=== PATIENT | male | born 1990 | race Caucasian/White ===

== ENCOUNTER 2019-02-28 09:29 | Inpatient (IN) | payer OTHER ==
[~2019-02-28] VITALS: Ht 185.4 cm; Wt 88.5 kg
[2019-02-28 09:36] VITALS: BP 138/95
[2019-02-28 10:59] LABS: ABSOLUTE BASOPHILS 0.1 thou/uL (0.0-0.2); ABSOLUTE LYMPHOCYTES 1.4 thou/uL (0.8-5.3); ABSOLUTE MONOCYTES 0.9 thou/uL (0.0-1.2); ABSOLUTE NEUTROPHILS 10.2 thou/uL (1.6-8.1); BASOPHILS 0.4 %; EOSINOPHILS 0.2 %; HEMATOCRIT 41.1 % (42.0-52.0); HEMOGLOBIN 14.4 gm/dL (14.0-18.0); LYMPHOCYTES 11.4 %; MCH 29.9 pg (26.0-34.0); MCHC 35.1 g/dL (28.0-37.0); MCV 85.3 fL (80.0-100.0); MONOCYTES 7.2 %; MPV 7.9 fl. (7.2-11.1); NUCLEATED RBCS 0 /100WBC; PLATELET COUNT* 259 thou/uL (150-400); POLYS 80.8 %; RBC 4.82 mil/uL (4.50-6.00); RDW-CV 12.9 % (10.5-14.5); WBC 12.6 thou/uL (4.0-11.0)
[2019-02-28 11:10] LABS: CALCIUM 10.2 mg/dL (8.5-10.1); CREATININE 1.1 mg/dL (0.6-1.3); POTASSIUM 4.1 mmol/L (3.5-5.1)
[2019-02-28 11:14] LABS: ALBUMIN 4.2 g/dL (3.4-5.0); TOTAL BILIRUBIN 1.1 mg/dL (<0.1-1.0)
[2019-02-28 12:02] LABS: ESR (SEDRATE) 40 mm/hr (0-15)
--- NOTE | 2019-02-28 17:00 | NUR ---
REPORT REC'D FROM LAKESHA RN, ER NURSE. PATIENT REC'D TO RM 318 PER CART FROM ER W/ ER CRABBER PRESENT. PATIENT ALERT AND ORIENTED, DR HERNANDEZ IN TO SEE PATIENT. MOTHER IN TO SEE PATIENT. IV SITE NOTED WNL. PATIENT STATES RT KNEE PAIN 07/16, STATES "GIVE ME A REMOTE FOR THE TV AND I WILL BE FINE". EDUCATED ON POC AND RM, CALL LIGHT. PATIENT STATES VERBALLY OF UNDERSTANDING. RESTING IN BED AT THIS TIME. CALL LIGHT IN REACH. ~JANRN
[2019-02-28 17:04] VITALS: BP 123/67
[2019-02-28 20:00] VITALS: BP 115/62
[2019-03-01 00:01] VITALS: BP 117/61
[2019-03-01 07:35] VITALS: BP 119/68
--- NOTE | 2019-03-01 07:36 | NUR ---
Alert and oriented x 4. He has been in the bed all of shift,he has voided per urinal. He did have a low grade fever but it did decrease. This am Dr Mcmillan did aspirate the rt knee and also swabbed it. He gave verbal orders to send swabs to lab. Patient had pain meds x 1 this shift. He has slept well.
--- NOTE | 2019-03-01 15:15 | NUR ---
MET WITH PT.AND HIS MOM,JUSTO IN ROOM. PT.S 5 YR OLD SON IN ROOM ALSO. HE SAID HE HAS 50% CUSTODY OF CHILD. HE LIVES ALONE. MOTHER IS SUPPORTIVE. 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 HE SAID ORTHOPEDICS SAID THAT HIS JOB MAY BE WHAT IS CAUSING HIS KNEE PROBLEM,SINCE HE KNEELS ALOT AT WORK. PT.SAID HE CALLED HIS BOSS TO SEE WHERE TO CALL FOR [facility] [facility] AND BOSS WOULD NOT GIVE IT TO HIM. HE TOLD HIM HE HAD TO PROVE IT FIRST. CM WILL CONTACT ADMITTING TO SEE IF THEY CAN CALL EMPLOYER ABOUT WORK COMP. TOLD PT.HE WOULD HAVE KNOW THAT INJURY DID OCCUR ON HIS JOB. HE CAN REQUEST A COPY OF HIS MEDICAL RECORD. GAVE HIM PACKET FOR THE UNINSURED WITH [facility].
[2019-03-01 16:00] VITALS: BP 127/63
[2019-03-01 20:00] VITALS: BP 139/87
--- NOTE | 2019-03-02 07:22 | NUR ---
Alert and oriented x 4. Rt knee dressing he said was draining through the dressing. Dressing was changed. He did have IV vanco run throuhg with no difficulties after it was done he complained that his IV hurt. He asked for his IV to be removed which is was. He has had nothing by mouth this shift. We were awaiting the ortho dr to see if they planned to do an I&D today. The redness and swelling has improved. Patient vitals are stable , he has slept well.
[2019-03-02 08:00] VITALS: BP 133/75
[2019-03-02 11:11] VITALS: BP 133/75
--- NOTE | 2019-03-02 11:25 | NUR ---
PATIENT REFUSING BLOOD DRAW.
[2019-03-02] MEDS ORDERED: BACTRIM DS TAB1 EACH PO (14:52)
--- NOTE | 2019-03-02 15:01 | NUR ---
ASSUMED PATIENT CARE [id number]. PATIENT ALERT AND ORIENTED TIMES FOUR. NO COMPLAINTS OF PAIN OR DISCOMFORT NOTED. WOUND TO RIGHT KNEE STILL OOZING-REDRESSED. FAMILY AT BEDSIDE TO TAKE HOME. NO IV IN PLACE. 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
== END 2019-03-02 15:05 | disposition home or self-care (01) | DRG 558 ==
LOC: M.ERS 09:29 → M.3W 13:00 → M.TBA-ER 13:00 → M.3W 17:07
PROVIDERS: Physician Assistant; ADMIT Internal Medicine
PROC: 0S9C3ZZ Drainage of Right Knee Joint, Percutaneous Approach (ICD-10-PCS; principal; 2019-03-02)
DX: M70.41 Prepatellar bursitis, right knee (principal); L02.415 Cutaneous abscess of right lower limb; L03.115 Cellulitis of right lower limb; L73.9 Follicular disorder, unspecified; F31.9 Bipolar disorder, unspecified; E83.52 Hypercalcemia; Y93.89 Activity, other specified; Z88.7 Allergy status to serum and vaccine; Z88.8 Allergy status to other drugs, medicaments and biological substances; Z88.1 Allergy status to other antibiotic agents